=== PATIENT | female | born 1965 | race Caucasian/White ===

== ENCOUNTER → 2021-12-02 | Outpatient (CLI) | payer OTHER | LOC: COL.RAD 13:28 | DX: M17.11 Unilateral primary osteoarthritis, right knee (principal) ==

== ENCOUNTER → 2023-04-06 | Outpatient (CLI) | payer OTHER ==
[~2023-04-06] MED LIST: AKTOB 5 ML5 ML OP
== END ==
LOC: COL.RAD 15:16
DX: M79.671 Pain in right foot (principal)

== ENCOUNTER 2023-07-04 17:30 | Emergency (ER) | payer OTHER ==
[~2023-07-04] VITALS: Ht 160 cm; Wt 91.0 kg
[2023-07-04 17:36] VITALS: TEMP 98.1
[2023-07-04] MEDS ORDERED: dexAMETHasone 4 MG TAB PO ONE (19:00)
[2023-07-04 19:29] VITALS: BP 161/90; PULSE 72
== END 2023-07-04 19:29 | disposition home or self-care (01) ==
LOC: COL.ER 17:30
DX: B34.9 Viral infection, unspecified (principal); R05.9 Cough, unspecified; I10 Essential (primary) hypertension; R09.81 Nasal congestion; R09.89 Other specified symptoms and signs involving the circulatory and respiratory systems; R52 Pain, unspecified; R06.2 Wheezing; R53.81 Other malaise; F17.200 Nicotine dependence, unspecified, uncomplicated
CPT/HCPCS: J8540